=== PATIENT | female | born 1940 | race Caucasian/White ===

== ENCOUNTER 2023-10-12 15:36 | Emergency (ER) | payer MEDICARE, OTHER, SELFPAY ==
[2023-10-12 15:41] VITALS: BP 130/55; BMI 28.1
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
--- NOTE | 2023-10-12 18:15 | EDRN ---
Called [facility] and was able to speak w their glue drier operator, when transferred to the clinical staff there is no answer.
== END 2023-10-12 18:34 | disposition home or self-care (01) ==
LOC: EMR 15:36
PROVIDERS: EMERGENCY PHYSICIAN Emergency Medicine; FAMILY PHYSICIAN Internal Medicine
DX: R41.0 Disorientation, unspecified (principal); G30.9 Alzheimer's disease, unspecified; F02.811 Dementia in other diseases classified elsewhere, unspecified severity, with agitation; N18.9 Chronic kidney disease, unspecified; I12.9 Hypertensive chronic kidney disease with stage 1 through stage 4 chronic kidney disease, or unspecified chronic kidney disease; Z87.891 Personal history of nicotine dependence
CPT/HCPCS: 99283

== ENCOUNTER 2023-11-17 20:24 | Inpatient (IN) | payer MEDICARE, OTHER, SELFPAY ==
[2023-11-17 14:23] VITALS: BP 121/49
[2023-11-17 15:00] VITALS: BP 100/42
[2023-11-17 15:28] VITALS: BP 100/42
[2023-11-17 15:32] VITALS: BMI 26.5
[2023-11-17 15:48] LABS: % Basophils 0.6 % (0-2); % Eosinophils 1.7 % (0-6); % Immature Granulocytes 0.2 % (0-0.5); % Monocytes 13.1 % (1.7-9.3); % Neutrophils 62.4 % (42.2-75.2); Absolute Eosinophils 0.1 10^3/uL (0-0.7); Absolute Monocytes 0.6 10^3/uL (0.1-0.6); Hematocrit 28.8 % (37.0-47.0); Hemoglobin 9.6 g/dL (12.0-16.0); Mean Corp Hgb Conc. 33.3 g/dL (33.0-37.0); Mean Corpuscular Hgb 30.3 pg (27.0-31.0); Mean Corpuscular Volume 90.9 fL (81.0-99.0); Mean Platelet Volume 10.9 fL (7.4-10.4); Nucleated Red Blood Cells % 0 %; Platelet Count 174 10^3/uL (130-400); Red Blood Cell Count 3.17 10^6/uL (4.20-5.40); Red Cell Dist. Width 13.8 % (11.5-14.5); White Blood Cell Count 4.7 10^3/uL (4.8-10.8)
[2023-11-17 15:57] LABS: Lactic Acid 0.6 mmol/L (0.7-2.0)
[2023-11-17 15:59] LABS: ALT (SGPT) < 10 U/L (0-35); AST (SGOT) 21 U/L (14-36); Albumin 3.3 g/dl (3.5-5.0); Alkaline Phosphatase 80 U/L (38-126); Blood Urea Nitrogen 34 mg/dl (7-17); Calcium 8.9 mg/dl (8.4-10.2); Carbon Dioxide 26 mmol/L (22-30); Chloride 108 mmol/L (98-107); Estimated Creatinine Clearance 20 ml/min; Glucose 94 mg/dl (70-99); Potassium 4.3 mmol/L (3.5-5.1); Sodium 136 mmol/L (135-145); Total Bilirubin 0.7 mg/dl (0.2-1.3); Total Protein 5.6 g/dl (6.3-8.2); eGFR 24.64
[2023-11-17 16:00] VITALS: BP 110/55
--- NOTE | 2023-11-17 16:15 | ED.GENMED ---
History of Present Illness
<DOMONIQUE Simms - Last Filed: 11/17/23 19:20>
General
Chief Complaint: Skin Problem
Source: family
Exam Limitations: none
Time Seen by Provider: 11/17/23 15:37
Travel History
Have you had any contact with someone who has COVID-19?: Unable to Answer
Do you have any symptoms of coronavirus? Fever > 100 degrees, chills, cough, shortness of breath, sore throat, loss of taste or smell, muscle aches, or headache?: Unable to Answer
History of Present Illness
History of Present Illness:
Patient is a 83-year-old female from [facility] with past medical history dementia presents to the ER for evaluation of redness to left lower extremity. Son reports yesterday she started to complain of pain, not fully walking her foot yesterday
afternoon. He has noticed that area is warm red and swollen. Son reports patient has been sleeping more than normal.
Past History
<DOMONIQUE Simms - Last Filed: 11/17/23 19:20>
Past History
ED Past Medical History: HTN, Hypothyroidism, Psychiatric (Anxiety) and Other (Dementia)
ED Past Surgical History: None
Social History
Tobacco: Former smoker
Alcohol: None
Drug: None
Living: [facility]
Review of Systems
<DOMONIQUE Simms - Last Filed: 11/17/23 19:20>
Review of Systems
Allergies reviewed?: Yes
All Other Systems: ROS reviewed and negative except as documented in HPI and ROS
Constitutional: Reports fatigue (increased sleeping ); Denies fever
Respiratory: Reports no symptoms; Denies cough
Cardiac: Reports no symptoms
ABD/GI: Reports no symptoms
Musculoskeletal: Reports other (redness pain to left foot )
Skin: Reports other (see above )
Neurological: Reports no symptoms
Endocrine: Reports no symptoms
Hematologic/Lymphatic: Reports no symptoms
Psychiatric: Reports no symptoms
Phy Exam
<DOMONIQUE Simms - Last Filed: 11/17/23 19:20>
General Physical Exam
General Presentation: no apparent distress
General age: appears stated age
General Skin: warm and dry
General Habitus: normal
General Mental: alert
General Hydration: appears well hydrated
Neurological Exam
Neurological Exam: alert and oriented x3
Musculoskeletal Exam
Musculoskeletal Exam: other (lle with + strong pulses + erythema/tenderness/swelling to left first MTP joint and great toe. + swelling to this region and dorsal foot )
Skin Exam
Skin Exam: normal color and warm/dry
Psychiatric Exam
Psychiatric Exam: normal mood/affect
Course
<DOMONIQUE Simms - Last Filed: 11/17/23 19:20>
Orders/Labs/Results
Orders:
Orders
11/17/23 15:37
Complete Blood Count/With Diff Urgent
Comprehensive Metabolic Panel Urgent
Lactate Level [Lactic Acid] Urgent
Blood Culture Q30M
MARTIN Source: Blood/Venous
Specimen Description:
Blood Culture Q30M
MARTIN Source: Blood/Venous
Specimen Description:
11/17/23 16:16
Foot, Left 3 View [CR Foot - Left Min 3 Views] Urgent
Comment:
Reason For Exam: redness pain to left first MTP joint
11/17/23 17:09
Acetaminophen 1000MG/100Ml [Ofirmev] 1,000 mg in 100 ml IV ONCE
Acetaminophen IV Indication:: No ND & No Enteral Access
11/17/23 18:03
CeFAZolin 1 GRAM [Ancef] 1 gram in 5 ml IV NOW
Abnormal Lab Results
11/17/23
15:37
WBC 4.7 L 10^3/uL
(4.8-10.8)
RBC 3.17 L 10^6/uL
(4.20-5.40)
Hgb 9.6 L g/dL
(12.0-16.0)
Hct 28.8 L %
(37.0-47.0)
MPV 10.9 H fL
(7.4-10.4)
Absolute Lymphs (auto) 1.0 L 10^3/uL
(1.2-3.4)
Monocytes % 13.1 H %
(1.7-9.3)
Chloride 108 H mmol/L
(98-107)
BUN 34 H mg/dl
(7-17)
Creatinine 2.0 H mg/dL
(0.6-1.0)
Lactic Acid 0.6 L mmol/L
(0.7-2.0)
Total Protein 5.6 L g/dl
(6.3-8.2)
Albumin 3.3 L g/dl
(3.5-5.0)
11/17/23 15:37
11/17/23 15:37
Vital Signs
Initial and Last Documented VS:
Initial Vital Signs
Pulse Resp BP Pulse Ox
58 13 121/49 99
11/17/23 14:23 11/17/23 14:23 11/17/23 14:23 11/17/23 14:23
Last Documented Vital Signs
Temp Pulse Resp BP Pulse Ox
97.9 F 57 17 110/55 96
11/17/23 17:31 11/17/23 16:30 11/17/23 16:30 11/17/23 16:00 11/17/23 16:30
Compliance Representative Dealer consulted with Physician
Compliance Representative Dealer consulted with physician?: Yes
Name of Physician Consulted: tom
<Waqas Tello, DO - Last Filed: 11/17/23 17:09>
Orders/Labs/Results
Orders:
Orders
11/17/23 15:37
Complete Blood Count/With Diff Urgent
Comprehensive Metabolic Panel Urgent
Lactate Level [Lactic Acid] Urgent
Blood Culture Q30M
MARTIN Source: Blood/Venous
Specimen Description:
Blood Culture Q30M
MARTIN Source: Blood/Venous
Specimen Description:
11/17/23 16:16
Foot, Left 3 View [CR Foot - Left Min 3 Views] Urgent
Comment:
Reason For Exam: redness pain to left first MTP joint
11/17/23 17:09
Acetaminophen 1000MG/100Ml [Ofirmev] 1,000 mg in 100 ml IV ONCE
Acetaminophen IV Indication:: No ND & No Enteral Access
11/17/23 18:03
CeFAZolin 1 GRAM [Ancef] 1 gram in 5 ml IV NOW
Abnormal Lab Results
11/17/23
15:37
WBC 4.7 L 10^3/uL
(4.8-10.8)
RBC 3.17 L 10^6/uL
(4.20-5.40)
Hgb 9.6 L g/dL
(12.0-16.0)
Hct 28.8 L %
(37.0-47.0)
MPV 10.9 H fL
(7.4-10.4)
Absolute Lymphs (auto) 1.0 L 10^3/uL
(1.2-3.4)
Monocytes % 13.1 H %
(1.7-9.3)
Chloride 108 H mmol/L
(98-107)
BUN 34 H mg/dl
(7-17)
Creatinine 2.0 H mg/dL
(0.6-1.0)
Lactic Acid 0.6 L mmol/L
(0.7-2.0)
Total Protein 5.6 L g/dl
(6.3-8.2)
Albumin 3.3 L g/dl
(3.5-5.0)
11/17/23 15:37
11/17/23 15:37
Vital Signs
Initial and Last Documented VS:
Initial Vital Signs
Pulse Resp BP Pulse Ox
58 13 121/49 99
11/17/23 14:23 11/17/23 14:23 11/17/23 14:23 11/17/23 14:23
Last Documented Vital Signs
Temp Pulse Resp BP Pulse Ox
97.9 F 57 17 110/55 96
11/17/23 17:31 11/17/23 16:30 11/17/23 16:30 11/17/23 16:00 11/17/23 16:30
<DOMONIQUE Simms - Last Filed: 11/17/23 19:20>
MDM/Problems Addressed
Differential Diagnosis Includes:
Not limited to gout, cellulitis, sepsis, dehydration
MDM/Problems Addressed:
Patient presents with swelling and redness to left foot along first MTP joint no prior history of gout. No fevers. Patient has obvious redness and swelling on exam tender. History obtained by son as patient is hard of hearing and with dementia.
Patient is sleeping more and not able to bear full weight with concern for weakness infection antibiotics ordered will admit. Labs reviewed patient does have a normal lactic. White count normal at 4.7. BUN elevated at 34 and 2.0(baseline) no
evidence of osteomyelitis on x-ray
Chronic conditions affecting care:
Dementia, chronic kidney disease
<DOMONIQUE Simms - Last Filed: 11/17/23 19:20>
*Radiology
Radiology exam reviewed: radiology read reviewed
*Pulse Oximetry
Patient hypoxic: no
*Critical Care Note
Total Time (30-74mins, 75-104mins- exclusive of procedures): Not Applicable
ED Attending Note
<DOMONIQUE Simms - Last Filed: 11/17/23 19:20>
-
Portions of this chart may have been created with voice recognition software.� Occasional wrong word or��sound alike� substitutions may have occurred due to the inherent limitations of voice recognition software.
<Waqas Tello DO - Last Filed: 11/17/23 17:09>
ED Attending Note
Patient seen and examined by attending physician: Yes
I performed the substantive portion of visit, reviewed & personally made and approve the management plan that is documented in note by myself or CHANCE.: Yes
ED Attending Note:
Seen with [employer], examined independently history obtained through patient's son dementia patient with red painful left great toe is sleeping more than usual, no history of gout no trauma currently low blood pressure relatively normotensive here white
count is down suspect cellulitis more likely than gouty arthropathy due to history of physical admittedly limited will start on some antibiotics not a great candidate for NSAIDs due to renal insufficiency will try some Tylenol
Discharge Plan
Departure
Patient Disposition: Admit
Date of Disposition: 11/17/23
Time of Disposition: 18:52
Admit to: Med/Surg
Presentation/result/management discussed w/ accepting MD/DO: Hospitalist
Patient with high blood pressure during this ER visit?: No
Condition: Fair
Covid-19: Not Applicable
Discharge Problem:
cellulitis left foot
Prescriptions:
No Action
losartan 50 mg Tablet
50 mg PO DAILY
levothyroxine [Synthroid] 75 mcg Tablet
75 mcg PO DAILY@0600
lorazepam 0.5 mg Tablet
0.5 mg PO BID@0700,1500
mirtazapine 15 mg Tablet
15 mg PO DAILY@2000
sertraline 50 mg Tablet
50 mg PO DAILY
memantine 10 mg Tablet
10 mg PO BID
lorazepam 0.5 mg tablet
0.5 mg PO BID PRN (Reason: anxiety)
Referrals:
Steve Patton MD [Family Provider] -
Interventions
Interventions:
*Risk Screen - Suicide Last Done: 11/17/23 15:52
*General Assessment Last Done: 11/17/23 15:52
*Neglect/Abuse Screening Last Done: 11/17/23 15:52
ED- Fall Risk Assessment Last Done: 11/17/23 15:52
*ED COVID-19 Vaccine History Last Done: 11/17/23 15:52
[2023-11-17] MEDS: ANCEF 5 IV (18:31)
[2023-11-17] MEDS: OFIRMEV 100 IV (18:34)
--- NOTE | 2023-11-17 19:53 | HPS.HSE ---
Family Physician
-
Family Physician: Steve Patton
Chief Complaint
-
L Foot Pain and Redness
History of Present Illness
Patient is an 83y F with PMH significant for dementia and CKD who presents to ED complaining of L foot pain. History obtained from patient and son at the bedside. History is limited due to dementia as well as severe hearing loss. Patient is
able to answer questions that are written out for her. She notes pain in the L foot on arrival that has improved significantly after IV Tylenol here in the ED. Son states that the redness and discomfort was first noted yesterday afternoon. Foot
was very warm and painful at that time.
Patient then slept for nearly 20 hours in the past day and was brought to the ED for evaluation of lethargy and foot pain / redness.
Since arrival in the ED, patient is now awake and alert and very bright and interactive.
She states that pain has improved but not resolved. She denies any other complaints.
Medical History
Past Medical History
Past Medical History: Reports Other
Additional Past Medical History:
Hypothyroidism
Severe Sensorineural Hearing Loss
Hypertension
CKD IV
Senile Dementia
Past Surgical History: Reports None and Other
Social History
Tobacco: Former Smoker (Quit smoking in the 1970s.)
Alcohol: None
Drug: None
Living: Shelter
Family History
Family History: Other (Gout in her brother and son.)
Allergies / Home Medications
Allergies reflects when Allergies were last updated in [facility].
Home Medications with original date entered in [facility]
Allergy/Medication List:
Allergies
Allergy/AdvReac Type Severity Reaction Status Date / Time
No Known Allergies Allergy Verified 11/17/23 15:32
Home Medications
levothyroxine 75 mcg tablet (Synthroid) 75 mcg PO DAILY@0600 Thyroid 10/02/23
lorazepam 0.5 mg tablet 0.5 mg PO BID@0700,1500 10/02/23
losartan 50 mg tablet 50 mg PO DAILY High Cholesterol 10/02/23
memantine 10 mg tablet 10 mg PO BID dementia 10/02/23
mirtazapine 15 mg tablet 15 mg PO DAILY@2000 Mental Health/Anxiety 10/02/23
sertraline 50 mg tablet 50 mg PO DAILY Mental Health/Anxiety 10/02/23
lorazepam 0.5 mg tablet 0.5 mg PO BID PRN anxiety 11/17/23
Review of Systems
-
History Source: Patient and Family
Constitutional: Reports Fatigue; Denies Fever or Chills
Respiratory: Denies Cough or Trouble Breathing
Cardiac: Denies Chest Pain or Palpitations
Abdomen/GI: Denies Abdominal Pain, Nausea, Vomiting or Diarrhea
: Denies Dysuria or Frequency
Musculoskeletal: Reports Joint Pain, Joint Swelling and Other (Redness)
Neurological: Denies Dizzy or Headache
Psych: Reports Dementia
Physical Exam
Vital Signs
Vital Signs
Temp Pulse Resp BP Pulse Ox
97.9 F 57 17 110/55 96
11/17/23 17:31 11/17/23 16:30 11/17/23 16:30 11/17/23 16:00 11/17/23 16:30
Physical Exam
General: Other (83y F in no acute distress. Awake, alert and pleasant.)
HEENT: Moist mucous membranes, PERRLA and Hearing Impaired (Severe)
Respiratory: Clear; No Wheezes, Rales or Rhonchi
Cardiac: S1/S2 and Regular Rhythm; No Murmur
GI: Soft, Non Tender, Non Distended and Normal Bowel Sounds
Musculoskeletal: No Clubbing, No Cyanosis and No Edema
Skin: Other (Erythema and mild increased warmth over the L 1st MTP joint with extension into the great toe. No evident areas of skin breakdown / wounds. Mild tenderness.)
Neuro: Awake and Alert
Laboratory Results
-
11/17/23 15:37
11/17/23 15:37
Laboratory Results
Lactic Acid 0.6 mmol/L (0.7-2.0) L 11/17/23 15:37
Total Bilirubin 0.7 mg/dl (0.2-1.3) 11/17/23 15:37
AST 21 U/L (14-36) 11/17/23 15:37
ALT < 10 U/L (0-35) 11/17/23 15:37
Alkaline Phosphatase 80 U/L (38-126) 11/17/23 15:37
Impression/Plan
-
A/P: Patient is an 83y F with PMH significant for dementia, and CKD IV who presents to ED for evaluation of lethargy and L foot pain / swelling.
Left Foot Cellulitis
- Admit for further evaluation and treatment.
- No evident source of infection / entry point.
- Given location, some concern for gout - though no personal history of this.
- Check uric acid. Begin PO prednisone if this is elevated (no NSAIDs due to CKD).
- Continue IV abx for now and follow for clinical improvement.
Acute TME secondary to the above
- This has apparently resolved.
- Patient reportedly with lethargy and slept for nearly 20 hours over the past day.
- Now she is bright and alert and appears at baseline.
CKD IV
- SCr = 2.0. Most recent baseline is reportedly 1.7 in summer 2022.
- Recent admission here with SCr peaked at 3.8 and was 2.3 on discharge - so improved from that point.
- Follow for changes in renal function.
- Renally dose medications. Avoid NSAIDs / hypotension / nephrotoxic meds.
Benign Hypertension
- Stable. BP very well-controlled at present.
- Continue losartan with holding parameters.
Hypothyroidism
- Stable. Continue current T4 supplementation.
Anemia of CKD
- Stable. Hgb is at / near known baseline.
- Follow for any changes.
Senile Dementia with Behavioral Disturbance
- Stable at present. Patient with history of wandering according to son and has spent the better part of the past 20+ hours asleep.
- Suspect that she will not sleep well this evening.
- Continue current psychotropic medications.
- Monitor closely for increased restlessness / agitation or wandering.
- Zyprexa PRN for any acute agitation / delirium.
DVT Prophylaxis: Subcut Heparin
Code Status: Full
[2023-11-17] MEDS: REMERON 15 MG PO ×2 (20:08→21:49)
[2023-11-17 20:38] LABS: Uric Acid 6.9 mg/dl (2.5-6.2)
[2023-11-17 21:05] VITALS: BP 131/50; BMI 27.8
[2023-11-17] MEDS: NAMENDA 10 MG PO (21:49)
[2023-11-17] MEDS: NSS 1000 IV (21:58)
[2023-11-17] MEDS: HEPARIN SC (21:59)
[2023-11-17 23:59] VITALS: BP 118/66
--- NOTE | 2023-11-18 01:32 | PTCARENOTE ---
Pt arrived onto floor @2105. Vital signs stable. Pt unable to answer admission questions due to dementia -- son was able to assist. Pt oriented to room and call hwang; will continue to monitor.
[2023-11-18] MEDS: SYNTHROID 75 MCG PO (06:31)
[2023-11-18] MEDS: ATIVAN 0.5 MG PO ×2 (06:31→16:12)
[2023-11-18] MEDS: ANCEF 5 IV ×2 (06:31→18:00)
[2023-11-18 07:07] LABS: Hematocrit 29.2 % (37.0-47.0); Hemoglobin 9.6 g/dL (12.0-16.0); Mean Corp Hgb Conc. 32.9 g/dL (33.0-37.0); Mean Corpuscular Hgb 30.2 pg (27.0-31.0); Mean Corpuscular Volume 91.8 fL (81.0-99.0); Mean Platelet Volume 11.2 fL (7.4-10.4); Platelet Count 175 10^3/uL (130-400); Red Blood Cell Count 3.18 10^6/uL (4.20-5.40); Red Cell Dist. Width 13.5 % (11.5-14.5); White Blood Cell Count 4.6 10^3/uL (4.8-10.8)
[2023-11-18 07:29] LABS: Blood Urea Nitrogen 34 mg/dl (7-17); Calcium 9.1 mg/dl (8.4-10.2); Carbon Dioxide 27 mmol/L (22-30); Chloride 107 mmol/L (98-107); Estimated Creatinine Clearance 23 ml/min; Glucose 75 mg/dl (70-99); Potassium 4.4 mmol/L (3.5-5.1); Sodium 140 mmol/L (135-145); eGFR 27.96
[2023-11-18 07:33] VITALS: BP 127/64
--- NOTE | 2023-11-18 09:37 | W.PN.HOSP.TC ---
Today's Communication/Plan
-
Add prednisone
Assessment / Plan
Assessment / Plan
Gen-awake, alert, NAD
HEENT-NC, AT, anicteric, clear oral mm
Neck-supple
CV-reg, no M, +S1/S2
Lungs-clear B/L
Abd-soft, NT, ND
Ext-no edema
Musculoskeletal-no cyanosis, clubbing, left first toe diffuse erythema and tenderness with pain on flexion extension
Skin-warm and dry
Neuro-grossly non-focal
Psych-calm, cooperative
Left Foot Cellulitis -strong suspicion for acute gout flare given first toe involvement and diffuse tenderness with erythema, limited range of motion. Uric acid 6.9. Will avoid colchicine given chronic kidney disease. Start prednisone. Continue
empiric cefazolin for now.
Foot x-ray with soft tissue swelling, no fracture, no osteomyelitis.
Acute TME - secondary to the above. Mental status back to baseline.
CKD IV -renal function at baseline.
Essential hypertension
�- Stable.� BP very well-controlled at present.
�- Continue losartan with holding parameters.
Hypothyroidism
�- Stable.� Continue current T4 supplementation.
Anemia of CKD
�- Stable.� Hgb is at / near known baseline.
�- Follow for any changes.
Leukopenia -unclear etiology. Monitor for now.
Senile Dementia with Behavioral Disturbance
�- Stable at present.� Patient with history of wandering according to son and has spent the better part of the past 20+ hours asleep.
�- Suspect that she will not sleep well this evening.
�- Continue current psychotropic medications.
�- Monitor closely for increased restlessness / agitation or wandering.
�- Zyprexa PRN for any acute agitation / delirium.
DVT Prophylaxis:� Subcut Heparin
Full code
PT/OT
Anticipated Discharge: 24 - 48 hours
Subjective/Interval History
-
Date of Service: November 18, 2023
Patient seen and examined. No complaints.
Objective Data
-
Labs:
Laboratory Results
11/18/23
06:10
WBC 4.6 L
Hgb 9.6 L
Hct 29.2 L
Plt Count 175
Sodium 140
Potassium 4.4
Chloride 107
Carbon Dioxide 27
BUN 34 H
Creatinine 1.8 H
Glucose 75
Calcium 9.1
Vital Signs:
Vital Signs
Temp Pulse Resp BP Pulse Ox
97.8 F 54 20 127/64 100
11/18/23 07:33 11/18/23 07:33 11/18/23 07:33 11/18/23 07:33 11/18/23 07:33
I&O
11/17/23 11/18/23 11/19/23
05:59 06:59 06:59
Intake Total
Balance
Review of Systems
-
Unable to obtain full review of systems at this time due to: Dementia
History Source: Patient
All other systems: Reviewed and negative
[2023-11-18] MEDS: COZAAR 50 MG PO (09:55)
[2023-11-18] MEDS: ZOLOFT 50 MG PO (09:55)
[2023-11-18] MEDS: HEPARIN 5000 UNITS SC ×2 (09:55→21:13)
[2023-11-18] MEDS: NAMENDA 10 MG PO (09:55)
[2023-11-18] MEDS: DELTASONE 30 MG PO (10:14)
[2023-11-18] MEDS: NSS 1000 IV ×2 (10:17→23:00)
--- NOTE | 2023-11-18 15:10 | CM ---
IA completed with pts son via phone.
Pt is an 83yr female admitted with foot cellulitis.
Pt at baseline has dementia and lives in [facility].
Pt receives aide with ADLs and mobility at baseline and uses a RW
Per son, they were just dc'd from [facility]N just prior to this admission. [facility] uses [facility]. .
PCP; Steve Patton
Pharm; [facility] in conjunction with facility
PLAN; Return to [facility]. Ask facility about VN needs
[2023-11-18 15:15] VITALS: BP 117/80
[2023-11-18] MEDS: NAMENDA PO (21:13)
[2023-11-18] MEDS: REMERON PO (21:13)
[2023-11-18] MEDS: ZYPREXA 2.5 MG PO (21:17)
[2023-11-18 23:17] VITALS: BP 139/72
[2023-11-19] MEDS: NAMENDA PO ×3 (05:01→21:48)
[2023-11-19] MEDS: REMERON PO ×3 (05:01→21:48)
[2023-11-19] MEDS: SYNTHROID 75 MCG PO (05:28)
[2023-11-19] MEDS: ANCEF 5 IV ×2 (05:28→18:30)
--- NOTE | 2023-11-19 09:26 | W.PN.HOSP.TC ---
Today's Communication/Plan
-
continue prednisone
continue IV Ancef
Assessment / Plan
Assessment / Plan
Assessment:
Left Foot Cellulitis
L 1st toe Gout
- Xray: Soft tissue swelling. No acute fracture. No radiographic evidence of osteomyelitis
- Uric 6.9
- not a colchine candidate in setting of CKD
- continue prednisone daily with eventual taper
- continue Ancef, day 2
Acute TME - secondary to the above. Mental status back to baseline. 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
CKD stage IV - renal function at baseline.
Essential hypertension
- Stable.�BP very well-controlled at present.
- Continue losartan with holding parameters.
Hypothyroidism
- Stable.�Continue current T4 supplementation.
Anemia of CKD
- Stable.�Hb is at/near known baseline.
- Follow for any changes.
Leukopenia
- unclear etiology. Monitor for now.
Senile Dementia with Behavioral Disturbance
- Stable at present.�Patient with history of wandering according to son and has spent the better part of the past 20+ hours asleep.
- Suspect that she will not sleep well this evening.
- Continue current psychotropic medications.
- Monitor closely for increased restlessness/agitation or wandering especially with concurrent steroid therapy.
- Zyprexa PRN for any acute agitation/delirium.
DVT Prophylaxis:�Heparin
Code: Full
Anticipated Discharge: 24 - 48 hours
Subjective/Interval History
-
Date of Service: November 19, 2023
deaf per RN, confabulating responses to questions
no acute overnight events
Objective Data
-
Vital Signs:
Vital Signs
Temp Pulse Resp BP Pulse Ox
97.6 F 68 20 139/72 98
11/18/23 23:17 11/18/23 23:17 11/18/23 23:17 11/18/23 23:17 11/18/23 23:17
I&O
11/18/23 11/19/23 11/20/23
06:59 06:59 06:59
Intake Total 1100 / 1100
Balance 1100 / 1100
Physical Exam
-
General: No Apparent Distress
HEENT: Normocephalic and Atraumatic
Respiratory: Negative Wheezes
Cardiac: Regular Rhythm and S1/S2
GI: Soft
Genito-urinary: No Costovertebral Tender
Neuro: Awake
Psych: Apparent Dementia
Data Reviewed
-
Total Time Spent with Patient (in minutes): 41
Labs: Labs Reviewed by me
[2023-11-19] MEDS: DELTASONE 30 MG PO (10:06)
[2023-11-19] MEDS: HEPARIN 5000 UNITS SC ×2 (10:07→21:44)
[2023-11-19] MEDS: NAMENDA 10 MG PO (10:07)
[2023-11-19] MEDS: ZOLOFT 50 MG PO (10:07)
[2023-11-19] MEDS: ATIVAN 0.5 MG PO ×2 (10:07→15:32)
[2023-11-19] MEDS: COZAAR 50 MG PO (10:07)
--- NOTE | 2023-11-19 10:56 | PHA.VAN.IN ---
Assessment
- Assessment
Renal Function: Appears similar to baseline (SCr 1.8; baseline CKD IV)
Maximum Temperature: 97.9
Concomitant Antimicrobials: cefazolin
Plan
- Plan
Initial / Loading Dose: 1750mg (24 mg/kg), pending administration
Maintenance Regimen: dose by level
Monitoring: random level 3/12 am
Pharmacokinetics Vancomycin I
- -
Patient Age: 83
Patient Sex: Female
Vancomycin Day #: 1
Indication: Skin And Soft Tissue
Requesting Provider: Dr Velazco
Pertinent Antimicrobial Allergies:
no known allergies
Height / Weight:
Height 5 ft 3 in
Actual Weight 71.214 kg
Pertinent Past Medical History: CKD stage IV; left foor cellulitis, Acute TME
- Vital Signs / Lab Results
Temp Pulse Resp BP Pulse Ox
97.6 F 68 20 139/72 98
11/18/23 23:17 11/18/23 23:17 11/18/23 23:17 11/18/23 23:17 11/18/23 23:17
Lab Results - Hematology
11/17/23 11/18/23
15:37 06:10
WBC 4.7 L 4.6 L
Lab Results - Chemistry
11/17/23 11/18/23
15:37 06:10
BUN 34 H 34 H
Creatinine 2.0 H 1.8 H
Estimated Creat Clear 20 23
Albumin 3.3 L
11/17/23
15:37
Lactic Acid 0.6 L
Microbiology Results
11/17/23 15:37 Blood Culture - Preliminary
Blood/Venous No Growth in 24 hours- Final report to follow
11/17/23 15:37 Blood Culture - Preliminary
Blood/Venous No Growth in 24 hours- Final report to follow
--- NOTE | 2023-11-19 11:58 | PTCARENOTE ---
Med simón d/c'ed at [id number]
[2023-11-19] MEDS: VANCOCIN 535 MG IV (12:17)
--- NOTE | 2023-11-19 13:20 | CM ---
Chart reviewed and physical therapy are recommending that patient return to [facility] where patient resides, patient would benefit from visiting nurses services will send referral to [facility].
[facility].
[phone]
[2023-11-19 13:57] VITALS: BP 121/69
[2023-11-19 15:32] VITALS: BP 128/60
--- NOTE | 2023-11-19 18:45 | PTCARENOTE ---
Pt remains on medsitter. Confused speech with pleasant demeanor. Scheduled Ancef administered.
--- NOTE | 2023-11-19 21:00 | PTCARENOTE ---
PT is oriented to self, pulling out INTs, screaming, hallucinating that he sees babies and other people in the room. pt get trying to get OOB. would not listen to redirecting. pt setting off bed alarm and medsitter phone. pt became combative. s/w ARCHITECTURAL DESIGNER
obtained orders for restraints. attempted to give pt meds but spit them out. s/w ARCHITECTURAL DESIGNER Keyshawn - obtained order for IM Zyprex w/ little effect. pt maintained on medsiter, bed alarm, and restraints.
[2023-11-19] MEDS: ZYPREXA PO (21:43)
[2023-11-19] MEDS: STERILE WATER FOR INJECTION 2.10000000000000009 ML IM (22:06)
[2023-11-19] MEDS: ZYPREXA 10 MG IM (22:08)
[2023-11-19 22:45] VITALS: BP 118/61
[2023-11-20] MEDS: ATIVAN 0.5 MG PO ×2 (05:53→15:55)
[2023-11-20] MEDS: ANCEF 5 IV ×2 (05:53→17:48)
[2023-11-20] MEDS: SYNTHROID 75 MCG PO (05:53)
[2023-11-20 07:34] VITALS: BP 126/60
[2023-11-20 08:30] LABS: Hematocrit 28.7 % (37.0-47.0); Hemoglobin 9.5 g/dL (12.0-16.0); Mean Corp Hgb Conc. 33.1 g/dL (33.0-37.0); Mean Corpuscular Hgb 29.6 pg (27.0-31.0); Mean Corpuscular Volume 89.4 fL (81.0-99.0); Mean Platelet Volume 11.3 fL (7.4-10.4); Platelet Count 217 10^3/uL (130-400); Red Blood Cell Count 3.21 10^6/uL (4.20-5.40); Red Cell Dist. Width 13.5 % (11.5-14.5); White Blood Cell Count 6.5 10^3/uL (4.8-10.8)
--- NOTE | 2023-11-20 08:45 | PHA.VAN.FU ---
Vancomycin Assessment / Plan
- Assessment
Renal Function: SCR Decreasing
WBC's are: WNL
In the past 24 hrs, patient has been: Afebrile
Concomitant Antimicrobials: cefazolin
- Assessment - Therapeutic Drug Monitoring
Random Level: 14.7 - drawn ~19H after 1750mg loading dose
- Dosing Plan
Dosing by Level: Re-dose today (1000mg)
- Monitoring Plan
Random Level: 11/20 0600
- Follow Up
Pharmacy will continue to follow.
Vancomycin Follow UP
- -
Patient Age: 83
Patient Sex: Female
Vancomycin Day #: 2
Indication: Skin And Soft Tissue
Requesting Provider: Dr Velazco
Pertinent Antimicrobial Allergies:
NKDA
Height / Weight:
Height 5 ft 3 in
Actual Weight 71.214 kg
Pertinent Past Medical History: CKD stage IV; left foor cellulitis, Acute TME
- Vital Signs / Lab Results
Temp Pulse Resp BP Pulse Ox
97.8 F 47 16 126/60 99
11/20/23 07:34 11/20/23 07:34 11/20/23 07:34 11/20/23 07:34 11/20/23 07:34
Lab Results - Hematology
11/17/23 11/18/23
15:37 06:10
WBC 4.7 L 4.6 L
Lab Results - Chemistry
11/17/23 11/18/23
15:37 06:10
BUN 34 H 34 H
Creatinine 2.0 H 1.8 H
Estimated Creat Clear 20 23
Albumin 3.3 L
11/17/23
15:37
Lactic Acid 0.6 L
Microbiology Results
11/17/23 15:37 Blood Culture - Preliminary
Blood/Venous No Growth in 48 hours- Final report to follow
11/17/23 15:37 Blood Culture - Preliminary
Blood/Venous No Growth in 48 hours- Final report to follow
[2023-11-20 08:52] LABS: Vancomycin Random 14.7 ug/ml
[2023-11-20 09:01] LABS: Blood Urea Nitrogen 30 mg/dl (7-17); Calcium 9.2 mg/dl (8.4-10.2); Carbon Dioxide 24 mmol/L (22-30); Chloride 109 mmol/L (98-107); Estimated Creatinine Clearance 26 ml/min; Glucose 68 mg/dl (70-99); Sodium 141 mmol/L (135-145)
[2023-11-20 09:07] LABS: Potassium 3.6 mmol/L (3.5-5.1)
--- NOTE | 2023-11-20 10:10 | W.PN.HOSP.TC ---
Today's Communication/Plan
-
continue IV abx
hopefully DC in 24 hours back to [facility] with VN
Assessment / Plan
Assessment / Plan
Assessment:
Left Foot Cellulitis
L 1st toe Gout
- Xray: Soft tissue swelling. No acute fracture. No radiographic evidence of osteomyelitis
- Uric 6.9
- not a colchine candidate in setting of CKD
- continue prednisone daily with eventual taper
- continue Vanco, day 2, Ancef day 3 - known hx of MRSA
Acute TME - secondary to the above. Mental status back to baseline. At baseline is very hard of hearing, functionally deaf.
CKD stage IV - renal function at baseline.
Essential hypertension
- Stable.�BP very well-controlled at present.
- Continue losartan with holding parameters.
Hypothyroidism
- Stable.�Continue current T4 supplementation.
Anemia of CKD
- Stable.�Hb is at/near known baseline.
- Follow for any changes.
Leukopenia
- unclear etiology. Monitor for now.
Senile Dementia with Behavioral Disturbance
- Stable at present.�Patient with history of wandering according to son and has spent the better part of the past 20+ hours asleep.
- Continue current psychotropic medications.
- Monitor closely for increased restlessness/agitation or wandering especially with concurrent steroid therapy.
- Zyprexa PRN for any acute agitation/delirium.
- briefly requiring restraints, will attempt to wean off
DVT Prophylaxis:�Heparin
Code: Full
Anticipated Discharge: 24 - 48 hours
Subjective/Interval History
-
Date of Service: November 20, 2023
slept well overnight after 1 dose of Zyprexa
this AM seems more baseline which is pleasantly confused
Objective Data
-
Labs:
Laboratory Results
11/20/23
07:15
WBC 6.5
Hgb 9.5 L
Hct 28.7 L
Plt Count 217 D
Sodium 141
Potassium 3.6
Chloride 109 H
Carbon Dioxide 24
BUN 30 H
Creatinine 1.6 H
Glucose 68 L
Calcium 9.2
Vital Signs:
Vital Signs
Temp Pulse Resp BP Pulse Ox
97.8 F 47 16 126/60 99
11/20/23 07:34 11/20/23 07:34 11/20/23 07:34 11/20/23 07:34 11/20/23 07:34
I&O
11/19/23 11/20/23 11/21/23
06:59 06:59 06:59
Intake Total 1100 / 1100 600 / 600
Balance 1100 / 1100 600 / 600
Physical Exam
-
General: No Apparent Distress
HEENT: Normocephalic and Atraumatic
Respiratory: Negative Wheezes or Rales
Cardiac: Regular Rhythm and S1/S2
GI: Soft and Nontender
Genito-urinary: No Costovertebral Tender
Psych: Apparent Dementia
Data Reviewed
-
Total Time Spent with Patient (in minutes): 41
Labs: Labs Reviewed by me
[2023-11-20] MEDS: COZAAR 50 MG PO (10:37)
[2023-11-20] MEDS: DELTASONE 30 MG PO (10:37)
[2023-11-20] MEDS: HEPARIN 5000 UNITS SC ×2 (10:37→21:30)
[2023-11-20] MEDS: NAMENDA 10 MG PO (10:38)
[2023-11-20] MEDS: ZOLOFT 50 MG PO (10:38)
--- NOTE | 2023-11-20 11:47 | CM ---
Addendum entered by Brenda Portillo 11/20/23 16:23:
family independence case manager spoke with patient's son, Richie who agrees with plan for patient to return to [facility] tomorrow by ambulance.
[facility]
[phone]

Original Note:
family independence case manager reviewed patient's chart and left a message for nurse utility manager at [facility], where patient resides, per staff they need to evaluate patient, per [facility] patient is current with them, referral sent through [facility].
message left with patient's son to review discharge plan.
Plan; Patient to return to [facility] with [facility].
[facility]
[phone]
[2023-11-20] MEDS: VANCOCIN 200 IV (12:44)
[2023-11-20] MEDS: ZYPREXA 2.5 MG PO (12:44)
[2023-11-20 13:36] VITALS: BP 111/57; PULSE 54; O2SAT 96
[2023-11-20 15:30] VITALS: BP 96/66
[2023-11-20] MEDS: REMERON PO ×2 (21:17→22:19)
[2023-11-20] MEDS: NAMENDA PO ×2 (21:17→22:19)
[2023-11-20] MEDS: HEPARIN SC (21:18)
[2023-11-20 23:56] VITALS: BP 128/61
[2023-11-21] MEDS: ANCEF 5 IV (05:37)
[2023-11-21 07:55] VITALS: BP 134/86
[2023-11-21 08:23] LABS: Hematocrit 29.8 % (37.0-47.0); Hemoglobin 9.9 g/dL (12.0-16.0); Mean Corp Hgb Conc. 33.2 g/dL (33.0-37.0); Mean Corpuscular Hgb 29.9 pg (27.0-31.0); Mean Platelet Volume 10.6 fL (7.4-10.4); Platelet Count 214 10^3/uL (130-400); Red Blood Cell Count 3.31 10^6/uL (4.20-5.40); Red Cell Dist. Width 13.8 % (11.5-14.5); White Blood Cell Count 5.8 10^3/uL (4.8-10.8)
[2023-11-21] MEDS: ATIVAN 0.5 MG PO ×2 (08:30→14:10)
[2023-11-21] MEDS: COZAAR 50 MG PO (08:30)
[2023-11-21] MEDS: DELTASONE 20 MG PO (08:30)
[2023-11-21] MEDS: ZOLOFT 50 MG PO (08:30)
[2023-11-21] MEDS: NAMENDA 10 MG PO (08:30)
[2023-11-21] MEDS: SYNTHROID 75 MCG PO (08:30)
[2023-11-21] MEDS: HEPARIN 5000 UNITS SC (08:31)
[2023-11-21 08:32] LABS: Vancomycin Random 17.4 ug/ml
[2023-11-21 08:44] LABS: Blood Urea Nitrogen 27 mg/dl (7-17); Carbon Dioxide 25 mmol/L (22-30); Chloride 111 mmol/L (98-107); Estimated Creatinine Clearance 28 ml/min; Glucose 71 mg/dl (70-99); Potassium 3.9 mmol/L (3.5-5.1); Sodium 139 mmol/L (135-145); eGFR 34.79
--- NOTE | 2023-11-21 09:23 | PHA.VAN.FU ---
Vancomycin Assessment / Plan
- Assessment
Renal Function: SCR Increasing
WBC's are: WNL
In the past 24 hrs, patient has been: Afebrile
Concomitant Antimicrobials: cefazolin
- Assessment - Therapeutic Drug Monitoring
Random Level: 17.4 - drawn ~19H after previous dose of 1000mg
- Dosing Plan
Dosing by Level: Re-dose today (Vanc 750mg)
will trial reduced dosing today but may eventually require prolonged interval
- Monitoring Plan
Random Level: 11/21 0600
- Follow Up
Pharmacy will continue to follow.
Vancomycin Follow UP
- -
Patient Age: 83
Patient Sex: Female
Vancomycin Day #: 3
Indication: Skin And Soft Tissue
Requesting Provider: Dr Velazco
Pertinent Antimicrobial Allergies:
NKDA
Height / Weight:
Height 5 ft 3 in
Actual Weight 71.214 kg
Pertinent Past Medical History: CKD stage IV; left foor cellulitis, Acute TME
- Vital Signs / Lab Results
Temp Pulse Resp BP Pulse Ox
97.4 F 64 18 134/86 94
11/21/23 07:55 11/21/23 07:55 11/21/23 07:55 11/21/23 07:55 11/21/23 07:55
Lab Results - Hematology
11/20/23 11/21/23
07:15 07:54
WBC 6.5 5.8
Lab Results - Chemistry
11/20/23 11/21/23
07:15 07:54
BUN 30 H 27 H
Creatinine 1.6 H 1.5 H
Estimated Creat Clear 26 28
Microbiology Results
11/17/23 15:37 Blood Culture - Preliminary
Blood/Venous No Growth in 72 hours- Final report to follow
11/17/23 15:37 Blood Culture - Preliminary
Blood/Venous No Growth in 72 hours- Final report to follow
Therapeutic Drug Monitoring
Random Vancomycin 17.4 ug/ml 11/21/23 07:55
--- NOTE | 2023-11-21 11:33 | W.PN.HOSP.TC ---
Today's Communication/Plan
-
dc back to [facility]
Assessment / Plan
Assessment / Plan
Assessment:
Left Foot Cellulitis
L 1st toe Gout
- Xray: Soft tissue swelling. No acute fracture. No radiographic evidence of osteomyelitis.
- Uric 6.9.
- not a colchicine candidate in setting of CKD.
- continue prednisone daily with eventual taper 20mg x 2 days, 10mg x 3 days then off
- dc on Doxy and Cephalexin BID x 7 further days
Acute TME - secondary to the above. Mental status back to baseline. At baseline is very hard of hearing, functionally deaf.
CKD stage IV - renal function at baseline.
Essential hypertension
- Stable.�BP very well-controlled at present.
- Continue losartan with holding parameters.
Hypothyroidism
- Stable.�Continue current T4 supplementation.
Anemia of CKD
- Stable.�Hb is at/near known baseline.
- Follow for any changes.
Leukopenia
- unclear etiology. Monitor for now.
Senile Dementia with Behavioral Disturbance
- Stable at present.�Patient with history of wandering according to son and has spent the better part of the past 20+ hours asleep.
- Continue current psychotropic medications.
- Monitor closely for increased restlessness/agitation or wandering especially with concurrent steroid therapy.
- Zyprexa PRN for any acute agitation/delirium.
- briefly requiring restraints, will attempt to wean off
DVT Prophylaxis:�Heparin
Code: Full
More than 30 minutes spent in discharge including
Final examination of the patient
Summarizing hospital stay
Instructions for continuing care to all relevant caregivers
Preparation of discharge records, prescriptions, and referral forms
Total time spent (in minutes): 41
Anticipated Discharge: Today
Subjective/Interval History
-
Date of Service: November 21, 2023
no complaints presently
Objective Data
-
Labs:
Laboratory Results
11/21/23
07:54
WBC 5.8
Hgb 9.9 L
Hct 29.8 L
Plt Count 214
Sodium 139
Potassium 3.9
Chloride 111 H
Carbon Dioxide 25
BUN 27 H
Creatinine 1.5 H
Glucose 71
Calcium 9.0
Vital Signs:
Vital Signs
Temp Pulse Resp BP Pulse Ox
97.4 F 64 18 134/86 94
11/21/23 07:55 11/21/23 07:55 11/21/23 07:55 11/21/23 07:55 11/21/23 07:55
I&O
11/20/23 11/21/23 11/22/23
06:59 06:59 06:59
Intake Total 600 / 600 220 / 220
Balance 600 / 600 220 / 220
Physical Exam
-
General: No Apparent Distress
HEENT: Normocephalic and Atraumatic
Respiratory: Negative Wheezes or Rales
Cardiac: Regular Rhythm and S1/S2
GI: Soft
Genito-urinary: No Costovertebral Tender
Musculoskeletal: No Edema
Neuro: AO x 3
Hematologic / Lymphatic: No Lymphadenopathy
Psych: Calm
Data Reviewed
-
Total Time Spent with Patient (in minutes): 42
Labs: Labs Reviewed by me
[2023-11-21] MEDS: VANCOCIN 150 IV (11:35)
--- NOTE | 2023-11-21 11:43 | W.DS.TRANS ---
DC Summary - Switchboard Operator
-
Discharge Instructions:
Discharge Diagnosis/Procedures gout with cellulitis
Diet Regular
Activity As tolerated
Bathing Restrictions None
Other Services VN
Instructions:
Stand-Alone Forms:
Changes to Home Medications: No
Discharge Medications:
DC Medications w/original date entered in [facility]
levothyroxine 75 mcg tablet (Synthroid) 75 mcg PO DAILY@0600 Thyroid 10/02/23
lorazepam 0.5 mg tablet 0.5 mg PO BID@0700,1500 10/02/23
losartan 50 mg tablet 50 mg PO DAILY High Cholesterol 10/02/23
memantine 10 mg tablet 10 mg PO BID dementia 10/02/23
mirtazapine 15 mg tablet 15 mg PO DAILY@2000 Mental Health/Anxiety 10/02/23
sertraline 50 mg tablet 50 mg PO DAILY Mental Health/Anxiety 10/02/23
lorazepam 0.5 mg tablet 0.5 mg PO BID PRN anxiety 11/17/23
cephalexin 500 mg capsule 500 mg PO BID #14 caps 11/21/23
doxycycline hyclate 100 mg capsule (Vibramycin) 100 mg PO BID #14 caps 11/21/23
prednisone 10 mg tablet 10 mg PO DAILY #7 tabs 11/21/23
Home Medication Changes
Pending Results: No
Total time spent discharging patient (in min): 42
--- NOTE | 2023-11-21 12:27 | CM ---
Chart reviewed and therapeutic case manager spoke with patient's son at bedside, patient to return to [facility] today with [facility]. Patient has a 3pm sisal picker by ambulance.
Plan; Patient to return to [facility] today at 3pm by ambulance.
[facility]
[phone]

[facility]
[phone]
[2023-11-21 15:35] VITALS: BP 93/65
== END 2023-11-21 16:30 | disposition home health service (06) | DRG 602 ==
LOC: 4 WEST ACU 20:24
PROVIDERS: ADMITTING PHYSICIAN Hospitalist; ATTENDING PHYSICIAN Internal Medicine; EMERGENCY PHYSICIAN Emergency Medicine; FAMILY PHYSICIAN Internal Medicine
DX: L03.116 Cellulitis of left lower limb (principal); G92.8 Other toxic encephalopathy; N18.4 Chronic kidney disease, stage 4 (severe); F03.918 Unspecified dementia, unspecified severity, with other behavioral disturbance; F03.94 Unspecified dementia, unspecified severity, with anxiety; M10.9 Gout, unspecified; I12.9 Hypertensive chronic kidney disease with stage 1 through stage 4 chronic kidney disease, or unspecified chronic kidney disease; E03.9 Hypothyroidism, unspecified; D63.1 Anemia in chronic kidney disease; Z86.14 Personal history of Methicillin resistant Staphylococcus aureus infection; Z87.891 Personal history of nicotine dependence
CPT/HCPCS: 73630; 80048; 80053; 80202; 83605; 84550; 85025; 85027; 87040; 93005; 96374; 96375; 97162; 97166; 97530; 99284; J2358

== ENCOUNTER 2025-03-29 13:22 | Emergency (ER) | payer MEDICARE, OTHER, SELFPAY ==
[2025-03-29 13:35] VITALS: BP 134/66
--- NOTE | 2025-03-29 17:09 | ED.GENMED ---
History of Present Illness
General
Chief Complaint: Cough
Source: care home
Exam Limitations: none
Time Seen by Provider: 03/29/25 16:44
Nursing documentation reviewed up to this point in time: agreed with
History of Present Illness
History of Present Illness:
[place] from [place]. Staff witnessed patient coughing at lunch today. Staff concerned for aspiration. Sent to ED via EMS for eval. SHe arrives awake and cooperative. No distress noted.
Past History
Past History
ED Past Medical History: HTN, Hypothyroidism, Psychiatric (Anxiety) and Other (Dementia)
ED Past Surgical History: None
Social History
Tobacco: Former smoker
Alcohol: None
Drug: None
Living: care home
Review of Systems
Review of Systems
Allergies reviewed?: Yes
All Other Systems: ROS reviewed and negative except as documented in HPI and ROS
Constitutional: Reports no symptoms
EENT: Reports no symptoms
Respiratory: Reports cough (cough SHIP WIRER)
Cardiac: Reports no symptoms
ABD/GI: Reports no symptoms
: Reports no symptoms
Musculoskeletal: Reports no symptoms
Skin: Reports no symptoms
Neurological: Reports no symptoms
Psychiatric: Reports no symptoms
Phy Exam
General Physical Exam
General Presentation: no apparent distress
General age: appears stated age
General Skin: warm and dry
General Habitus: normal
General Mental: alert
Cardiovascular Exam
Cardiovascular Exam: regular rate/rhythm and no edema
Pulmonary Exam
Pulmonary Exam: lungs clear and no respiratory distress
Gastrointestinal Exam
Gastrointestinal Exam: non tender and soft
Musculoskeletal Exam
Musculoskeletal Exam: full ROM, no edema and neuro vasc intact
Skin Exam
Skin Exam: normal color, warm/dry and no rash
Psychiatric Exam
Psychiatric Exam: normal mood/affect
Course
Orders/Labs/Results
Orders:
Orders
03/29/25 13:38
Chest [CR Chest - 2 Views ] Urgent
Comment:
Reason For Exam: poss aspiration
03/29/25 18:42
Basic Metabolic Panel Urgent
Complete Blood Count/With Diff Urgent
NT-proBNP Urgent
Comment: ADD ON
03/29/25 19:19
Add On- LAB Urgent
Tests Added?: BNP
Abnormal Lab Results
03/29/25
18:42
RBC 3.79 L 10^6/uL
(4.20-5.40)
Hgb 11.3 L g/dL
(12.0-16.0)
Hct 34.0 L %
(37.0-47.0)
Lymphocytes % 19.6 L %
(20.5-51.1)
Monocytes % 9.6 H %
(1.7-9.3)
Chloride 108 H mmol/L
(98-107)
BUN 50 H mg/dl
(7-17)
Creatinine 1.7 H mg/dL
(0.6-1.0)
03/29/25 18:42
03/29/25 18:42
Vital Signs
Initial and Last Documented VS:
Initial Vital Signs
Temp Pulse Resp BP Pulse Ox
98.4 F 64 18 134/66 99
03/29/25 13:35 03/29/25 13:35 03/29/25 13:35 03/29/25 13:35 03/29/25 13:35
Last Documented Vital Signs
Temp Pulse Resp BP Pulse Ox
98.4 F 63 16 146/65 94
03/29/25 13:35 03/29/25 18:00 03/29/25 18:00 03/29/25 18:00 03/29/25 18:00
*Radiology
Radiology exam reviewed: radiology read reviewed
*Pulse Oximetry
SaO2: 99
Oxygen Mode of Delivery: Room air
Patient hypoxic: no
*Critical Care Note
Total Time (30-74mins, 75-104mins- exclusive of procedures): Not Applicable
Update Note
Update Note:
Patient to ED after staff witnesses her coughing at lunch, concern for aspiration. No cough while in ED. She remains awake and cooperative. Confused, this is her baseline. LCTA. Pulse ox 96% RA. CXR rport reviewed. No evidence of pnuemonia.
Mild pulm edema noted. BNP 700. No edema, no crackles. No histtory of CHF. WIll discharge back to [place]. Close follow up with PCP.
ED Attending Note
-
Portions of this chart may have been created with voice recognition software.� Occasional wrong word or��sound alike� substitutions may have occurred due to the inherent limitations of voice recognition software.
Discharge Plan
Departure
Patient Disposition: Long Term/SNF
Date of Disposition: 03/29/25
Time of Disposition: 20:33
Patient with high blood pressure during this ER visit?: No
Condition: Good
Covid-19: Not Applicable
Discharge Problem:
Cough
Instructions: Cough, Adult (DC)
Prescriptions:
No Action
losartan 50 mg Tablet
50 mg PO DAILY
levothyroxine [Synthroid] 75 mcg Tablet
75 mcg PO DAILY@0600
lorazepam 0.5 mg Tablet
0.5 mg PO BID@0700,1500
mirtazapine 15 mg Tablet
15 mg PO DAILY@1999
sertraline 50 mg Tablet
50 mg PO DAILY
memantine 10 mg Tablet
10 mg PO BID
lorazepam 0.5 mg tablet
0.5 mg PO BID PRN (Reason: anxiety)
cephalexin 500 mg capsule
500 mg PO BID Qty: 14 0RF
doxycycline hyclate [Vibramycin] 100 mg capsule
100 mg PO BID Qty: 14 0RF
prednisone 10 mg tablet
10 mg PO DAILY Qty: 7 0RF
Rx Instructions:
starting 11/21, take 20mg daily x 2 days, then 10mg x 3 days
Referrals:
UNKNOWN - PT NOT,INTERVIEWE [Family Provider]
Activity Restrictions/Additional Instructions:
FOllow up with your primary care provider. Return to the emergency department immediately for any changes in/worsening of your symptoms
Interventions
Interventions:
*Risk Screen - Suicide Last Done: 03/29/25 13:35
*General Assessment Last Done: 03/29/25 13:35
*Neglect/Abuse Screening Last Done: 03/29/25 13:35
*ED- Fall Risk Assessment Last Done: 03/29/25 13:35
*ED COVID-19 Vaccine History Last Done: 03/29/25 13:35
ED- Pulmonary Assessment Last Done: 03/29/25 17:20
Discharge Date and Time
Print Language: AFGHAN
[2025-03-29 18:00] VITALS: BP 146/65
[2025-03-29 18:48] LABS: Hematocrit 34.0 % (37.0-47.0); Hemoglobin 11.3 g/dL (12.0-16.0); Mean Corp Hgb Conc. 33.2 g/dL (33.0-37.0); Mean Corpuscular Volume 89.7 fL (81.0-99.0); Nucleated Red Blood Cells % 0 %; Platelet Count 178 10^3/uL (130-400); Red Cell Dist. Width 12.7 % (11.5-14.5)
[2025-03-29 19:01] LABS: Blood Urea Nitrogen 50 mg/dl (7-17); Calcium 8.9 mg/dl (8.4-10.2); Carbon Dioxide 29 mmol/L (22-30); Chloride 108 mmol/L (98-107); Glucose 99 mg/dl (70-99); Potassium 5.1 mmol/L (3.5-5.1); Sodium 138 mmol/L (135-145); eGFR 29.76
--- NOTE | 2025-03-29 21:35 | EDRN ---
Patient ambulated to the restroom then got in the restroom and stated she doesn't need to go, patient back in bed resting, called and updated the family member and that patient will be going back home.
== END 2025-03-29 22:25 ==
LOC: EMR 13:22
PROVIDERS: Nurse Practitioner; EMERGENCY PHYSICIAN Emergency Medicine
DX: R05.9 Cough, unspecified (principal); I10 Essential (primary) hypertension; E03.9 Hypothyroidism, unspecified; F03.94 Unspecified dementia, unspecified severity, with anxiety; Z87.891 Personal history of nicotine dependence
CPT/HCPCS: 99284; 71046; 80048; 83880; 85025

== ENCOUNTER 2025-08-15 16:04 | Emergency (ER) | payer MEDICARE, OTHER, SELFPAY ==
--- NOTE | 2025-08-15 16:11 | ED.GENMED ---
History of Present Illness
<DOMONIQUE Simms - Last Filed: 08/15/25 20:00>
General
Chief Complaint: Breathing Problem
Source: ambulance crew
Time Seen by Provider: 08/15/25 16:05
History of Present Illness
History of Present Illness:
Patient is an 85-year-old female with past medical history of dementia hypertension chronic kidney disease sent by nursing care facility for evaluation of difficulty breathing. Nurse at facility reports pt was having difficulty breathing and her
pulse ox as low as 88% . Patient presents awake alert unable to give history she is very confused.
Past History
<DOMONIQUE Simms - Last Filed: 08/15/25 20:00>
Past History
ED Past Medical History: HTN, Hypothyroidism, Psychiatric (Anxiety) and Other (Dementia)
ED Past Surgical History: None
Social History
Tobacco: Former smoker
Alcohol: None
Drug: None
Living: care home
Phy Exam
<DOMONIQUE Simms - Last Filed: 08/15/25 20:00>
General Physical Exam
General Presentation: no apparent distress
General age: appears stated age
General Skin: warm and dry
General Habitus: normal
General Mental: confused
General Hydration: appears well hydrated
Cardiovascular Exam
Cardiovascular Exam: regular rate/rhythm, no murmur and normal peripheral pulses
Pulmonary Exam
Pulmonary Exam: lungs clear and other (Noisy inspiratory breath sounds no accessory muscle use patient no acute distress)
Neurological Exam
Neurological Exam: alert and other (Confused to baseline)
Musculoskeletal Exam
Musculoskeletal Exam: full ROM
Skin Exam
Skin Exam: normal color and warm/dry
Psychiatric Exam
Psychiatric Exam: normal mood/affect
Scores
<DOMONIQUE Simms - Last Filed: 08/15/25 20:00>
Heart Failure Risk
Heart Failure Risk Score: Not Applicable
Course
<DOMONIQUE Simms - Last Filed: 08/15/25 20:00>
Orders/Labs/Results
Orders:
Orders
08/15/25 16:16
Electrocardiogram (*1) Stat
Reason for Study: Other
Other Reason for Exam: pneumonia
Cardiac Monitoring- Treatment ONCE
EKG- Treatment ONCE
IV Insert/Care/Rem.- Treatment PRN
0.9% Sodium Chloride 1000 ml [Nss] 1,000 ml IV BOLUS
Dexamethasone Sod Phosphate [Decadron] 10 mg IV NOW STA
CR Chest - 2 Views Urgent
Comment:
Reason For Exam: sob
08/15/25 16:20
COVID-19 Antigen Urgent
Source: Nasal Swab
Complete Blood Count/With Diff Urgent
Comprehensive Metabolic Panel Urgent
Influenza A+B Rapid Molecular Urgent
MARTIN Source: Nasal Swab
Specimen Description:
08/15/25 16:32
Soft Tissue, Neck [CR Soft Tissue Neck ] Urgent
Comment:
Reason For Exam: difficulty breathing
08/15/25 16:42
Albuterol Nebs [Ventolin Nebules] 2.5 mg INH R NOW STA
08/15/25 17:07
RSV [Respiratory Syncytial Virus] Urgent
MARTIN Source: Nasal Swab
Specimen Description:
Date Specimen was Collected: 08/15/25
Time Specimen was Collected: 16:49
Abnormal Lab Results
08/15/25
16:20
RBC 3.86 L 10^6/uL
(4.20-5.40)
Hgb 11.1 L g/dL
(12.0-16.0)
Hct 35.4 L %
(37.0-47.0)
MCHC 31.4 L g/dL
(33.0-37.0)
Monocytes % 9.9 H %
(1.7-9.3)
Chloride 108 H mmol/L
(98-107)
BUN 38 H mg/dl
(7-17)
Creatinine 1.6 H mg/dL
(0.6-1.0)
Calcium 8.2 L mg/dl
(8.4-10.2)
Total Protein 6.1 L g/dl
(6.3-8.2)
08/15/25 16:20
08/15/25 16:20
Vital Signs
Initial and Last Documented VS:
Initial Vital Signs
Temp Pulse Resp BP Pulse Ox
98.0 F 58 19 158/58 98
08/15/25 16:13 08/15/25 16:13 08/15/25 16:13 08/15/25 16:13 08/15/25 16:13
Last Documented Vital Signs
Temp Pulse Resp BP Pulse Ox
98.0 F 72 18 158/58 96
08/15/25 16:13 08/15/25 18:45 08/15/25 18:45 08/15/25 16:13 08/15/25 18:45
Entrepreneurship Program Director consulted with Physician
Entrepreneurship Program Director consulted with physician?: Yes
Name of Physician Consulted: Nida
<Dianna Alva, - Last Filed: 08/15/25 19:56>
Orders/Labs/Results
Orders:
Orders
08/15/25 16:16
Electrocardiogram (*1) Stat
Reason for Study: Other
Other Reason for Exam: pneumonia
Cardiac Monitoring- Treatment ONCE
EKG- Treatment ONCE
IV Insert/Care/Rem.- Treatment PRN
0.9% Sodium Chloride 1000 ml [Nss] 1,000 ml IV BOLUS
Dexamethasone Sod Phosphate [Decadron] 10 mg IV NOW STA
CR Chest - 2 Views Urgent
Comment:
Reason For Exam: sob
08/15/25 16:20
COVID-19 Antigen Urgent
Source: Nasal Swab
Complete Blood Count/With Diff Urgent
Comprehensive Metabolic Panel Urgent
Influenza A+B Rapid Molecular Urgent
MARTIN Source: Nasal Swab
Specimen Description:
08/15/25 16:32
Soft Tissue, Neck [CR Soft Tissue Neck ] Urgent
Comment:
Reason For Exam: difficulty breathing
08/15/25 16:42
Albuterol Nebs [Ventolin Nebules] 2.5 mg INH R NOW STA
08/15/25 17:07
RSV [Respiratory Syncytial Virus] Urgent
MARTIN Source: Nasal Swab
Specimen Description:
Date Specimen was Collected: 08/15/25
Time Specimen was Collected: 16:49
Abnormal Lab Results
08/15/25
16:20
RBC 3.86 L 10^6/uL
(4.20-5.40)
Hgb 11.1 L g/dL
(12.0-16.0)
Hct 35.4 L %
(37.0-47.0)
MCHC 31.4 L g/dL
(33.0-37.0)
Monocytes % 9.9 H %
(1.7-9.3)
Chloride 108 H mmol/L
(98-107)
BUN 38 H mg/dl
(7-17)
Creatinine 1.6 H mg/dL
(0.6-1.0)
Calcium 8.2 L mg/dl
(8.4-10.2)
Total Protein 6.1 L g/dl
(6.3-8.2)
08/15/25 16:20
08/15/25 16:20
Vital Signs
Initial and Last Documented VS:
Initial Vital Signs
Temp Pulse Resp BP Pulse Ox
98.0 F 58 19 158/58 98
08/15/25 16:13 08/15/25 16:13 08/15/25 16:13 08/15/25 16:13 08/15/25 16:13
Last Documented Vital Signs
Temp Pulse Resp BP Pulse Ox
98.0 F 72 18 158/58 96
08/15/25 16:13 08/15/25 18:45 08/15/25 18:45 08/15/25 16:13 08/15/25 18:45
<DOMONIQUE Simms - Last Filed: 08/15/25 20:00>
MDM/Problems Addressed
Differential Diagnosis Includes:
Not limited to COVID influenza pneumonia laryngitis URI
MDM/Problems Addressed:
As documented patient is a 5-year-old female with dementia sent from nursing facility for difficulty breathing. Patient initially came in with hoarse type /noisy breathing. Patient was given albuterol nebulizer and Decadron and monitored here.
Patient no acute distress symptoms improved. Likely early viral syndrome negative COVID-negative flu she is afebrile with normal white count. Pulse ox has been normal here in the ER. No acute pneumonia on x-ray no history of fluid overload.
X-ray report reads grossly stable mild diffuse interstitial prominence.
She has chronic renal insufficiency labs unchanged. She is well-appearing in no acute distress case discussed ED physician who evaluated patient stable for d/c home.
<DOMONIQUE Simms - Last Filed: 08/15/25 20:00>
*Radiology
Radiology exam reviewed: radiology read reviewed
*Pulse Oximetry
SaO2: 96
Oxygen Mode of Delivery: Room air
Patient hypoxic: no
*Critical Care Note
Total Time (30-74mins, 75-104mins- exclusive of procedures): Not Applicable
ED Attending Note
<DOMONIQUE Simms - Last Filed: 08/15/25 20:00>
-
Portions of this chart may have been created with voice recognition software.� Occasional wrong word or��sound alike� substitutions may have occurred due to the inherent limitations of voice recognition software.
<Dianna Alva DO - Last Filed: 08/15/25 19:56>
ED Attending Note
Patient seen and examined by attending physician: Yes
I performed the substantive portion of visit, reviewed & personally made and approve the management plan that is documented in note by myself or CHANCE.: Yes
I performed a history and physical exam of patient and discussed management with resident, I reviewed resident's note and agree with documented findings and plan of care.: Yes
ED Attending Note:
85-year-old female with history of dementia and hearing issues presenting for difficulty breathing. Patient arrives with son, who notes breathing issues for the past few days which seem to worsen today at her assisted living facility. Patient very
poor historian given her dementia, however noted to have noisy breathing on inspiration on arrival. No report of any fever or abnormal lung disease. Vital significant for hypertension.
On exam, patient is now resting comfortably. Patient initially seen and evaluated by nurse practitioner, noted to have noisy inspiratory breathing with concern for upper respiratory infection. Patient was administered Decadron and DuoNeb. Chest
x-ray obtained, which shows findings of pneumonitis, however without significant change from prior imaging. Soft tissue neck without any abnormality. Labs show stable kidney disease. On my assessment, patient without any stridor, breathing
comfortably, no conversational dyspnea. For discharge with suspicion for reactive airway disease/viral URI. Will prescribe steroids and inhaler. Family updated at bedside
Discharge Plan
Departure
Patient Disposition: Penitentiary/SNF
Date of Disposition: 08/15/25
Time of Disposition: 19:48
Patient with high blood pressure during this ER visit?: Yes
Condition: Fair
Covid-19: Not Applicable
Discharge Problem:
URI (upper respiratory infection)
Instructions: Upper respiratory infection in adults (DC)
Prescriptions:
New
prednisone 20 mg tablet
40 mg PO DAILY Qty: 8 0RF
albuterol sulfate 90 mcg/actuation HFA aerosol inhaler
2 inh inhalation Q6H PRN (Reason: shortness of breath or wheezing) Qty: 6.7 0RF
No Action
lorazepam 0.5 mg Tablet
0.5 mg PO BID@0700,1500
mirtazapine 15 mg Tablet
15 mg PO HS
memantine 10 mg Tablet
10 mg PO BID
levothyroxine [Synthroid] 100 mcg Tablet
100 mcg PO DAILY
sertraline 25 mg Tablet
25 mg PO DAILY@1200
Referrals:
UNKNOWN,NO INTERVIEW [Family Provider]
Activity Restrictions/Additional Instructions:
As discussed patient's symptoms are likely viral syndrome. She was given 1 dose of steroids here in the ER and a nebulizer treatment. A prescription for an albuterol inhaler as well as steroids for the next 4 days sent to pharmacy. She should use
as directed. Patient to be evaluated by family doctor in the next 2 days. Return if any worsening of symptoms.
Interventions
Interventions:
*Risk Screen - Suicide Last Done: 08/15/25 16:09
*General Assessment Last Done: 08/15/25 16:09
*Neglect/Abuse Screening Last Done: 08/15/25 16:09
*ED COVID-19 Vaccine History Last Done: 08/15/25 16:09
*ED Influenza Vaccine History Last Done: 08/15/25 16:09
[facility] Fall Risk Assessment Tool Last Done: 08/15/25 17:12
ED- Cardiac Assessment Last Done: 08/15/25 17:00
ED- Pulmonary Assessment Last Done: 08/15/25 17:00
Discharge Date and Time
Print Language: COLOMBIAN
[2025-08-15 16:13] VITALS: BP 158/58
[2025-08-15] MEDS: NSS 1000 IV (16:22)
[2025-08-15] MEDS: DECADRON 10 MG IV (16:22)
[2025-08-15 16:26] VITALS: BMI 32.1
[2025-08-15 16:33] LABS: Hematocrit 35.4 % (37.0-47.0); Hemoglobin 11.1 g/dL (12.0-16.0); Mean Corp Hgb Conc. 31.4 g/dL (33.0-37.0); Mean Corpuscular Volume 91.7 fL (81.0-99.0); Nucleated Red Blood Cells % 0 %; Platelet Count 163 10^3/uL (130-400); Red Cell Dist. Width 13.2 % (11.5-14.5)
[2025-08-15 16:54] LABS: COVID-19 Antigen Negative (Negative)
[2025-08-15 16:55] LABS: ALT (SGPT) < 10 U/L (0-35); AST (SGOT) 23 U/L (14-36); Albumin 3.5 g/dl (3.5-5.0); Alkaline Phosphatase 73 U/L (38-126); Blood Urea Nitrogen 38 mg/dl (7-17); Calcium 8.2 mg/dl (8.4-10.2); Carbon Dioxide 25 mmol/L (22-30); Chloride 108 mmol/L (98-107); Estimated Creatinine Clearance 27 ml/min; Glucose 76 mg/dl (70-99); Potassium 4.5 mmol/L (3.5-5.1); Sodium 139 mmol/L (135-145); Total Protein 6.1 g/dl (6.3-8.2); eGFR 31.80
[2025-08-15] MEDS: VENTOLIN NEBULES 2.5 MG INH (17:07)
== END 2025-08-15 21:13 ==
LOC: EMR 16:04
PROVIDERS: Nurse Practitioner; EMERGENCY PHYSICIAN Student in an Organized Health Care Education/Training Program
DX: J06.9 Acute upper respiratory infection, unspecified (principal); F03.90 Unspecified dementia, unspecified severity, without behavioral disturbance, psychotic disturbance, mood disturbance, and anxiety; I12.9 Hypertensive chronic kidney disease with stage 1 through stage 4 chronic kidney disease, or unspecified chronic kidney disease; N18.9 Chronic kidney disease, unspecified; E03.9 Hypothyroidism, unspecified; F41.9 Anxiety disorder, unspecified; Z87.891 Personal history of nicotine dependence
CPT/HCPCS: 99284; 96374; 96361 ×2; 94640; 70360; 71046; 80053; 85025; 87502; 87807; 87811; 93005